=== PATIENT | male | born 1980 | race Caucasian/White ===

== ENCOUNTER 2019-03-24 16:40 | Emergency (ER) | payer SELFPAY ==
[~2019-03-24] VITALS: Ht 165.1 cm; Wt 55.5 kg
[~2019-03-24 16:40] MED LIST: CYCL10TA7 PO; HC20CR25 TOP; IBUP-1542 PO; MUPI22OI2 TOP
[2019-03-24 16:50] VITALS: BP 133/71; PULSE 74; RESP 18; Ht 165.1 cm; Wt 55.5 kg
[2019-03-24] MEDS ORDERED: KETOROLAC 30 MG INJ IM STA (17:31)
== END 2019-03-24 18:02 | disposition home or self-care (01) ==
LOC: FTE 16:40
DX: M54.5 Low back pain (principal)
CPT/HCPCS: 96372; 99284; J1885